=== PATIENT | female | born 1985 | race Hispanic/Latino ===

== ENCOUNTER 2017-07-03 11:01 | Emergency (ER) | payer MEDICAID, OTHER ==
[2017-07-03 11:25] VITALS: RESP 18; TEMP 98; BMI 17.8
[2017-07-03] MEDS ORDERED: Sodium Chloride 0.9% 1,000 ML IV STA (11:29)
[2017-07-03] MEDS ORDERED: Morphine 4 mg/ml ISec IVP STA ×2 (11:31→12:51)
[2017-07-03] MEDS ORDERED: Iohexol 240 (50 ml) ONE (11:47)
[2017-07-03] MEDS ORDERED: Iohexol 350 MG/100 ML VIAL ONE (11:57)
[2017-07-03 12:03] LABS: BASO # 0.01 K/mm3 (0.0-2.0); BASO % 0.2 % (0.0-3.0); EOS # 0.1 (0.0-0.7); EOS % 1.6 % (1.5-5.0); GRAN # 3.6 (1.4-6.5); GRAN % 71.1 % (50.0-68.0); HEMOGLOBIN 9.4 g/dL (12.0-16.0); LYMPH % 20.6 % (22.0-35.0); MEAN CORPUSCULAR HEMOGLOBIN 23.8 pg (25.0-35.0); MEAN CORPUSCULAR HGB CONC 30.1 g/dl (31.0-37.0); MEAN PLATELET VOLUME 11.8 fl (7.0-11.0); MONO # 0.3 (0.1-0.6); MONO % 6.5 % (1.0-6.0); PH,URINE 6.5 (4.7-8.0); RBC 3.95 10^6/uL (3.5-6.1); RED CELL DISTRIBUTION WIDTH 15.9 % (11.5-14.5); URINE BILIRUBIN NEGATIVE (NEGATIVE); URINE BLOOD NEGATIVE (NEGATIVE); URINE GLUCOSE (UA) NEGATIVE (NEGATIVE); URINE LEUKOCYTE ESTERASE NEGATIVE Leu/uL (NEGATIVE); URINE PROTEIN NEGATIVE mg/dL (<30 mg/dL); URINE UROBILINOGEN 0.2 E.U./dL (<1 E.U./dL); WHITE BLOOD COUNT 5.1 10^3/ul (4.5-11.0)
[2017-07-03 12:06] LABS: URINE APPEARANCE CLEAR (CLEAR); URINE COLOR STRAW (YELLOW)
[2017-07-03 12:09] LABS: ALB/GLOB RATIO 1.9 (1.1-1.8); ALBUMIN 4.6 g/dL (3.0-4.8); ALT/SGPT 23 U/L (7-56); AMYLASE 56 U/L (35-125); AST/SGOT 19 U/L (14-36); BLOOD UREA NITROGEN 4 mg/dL (7-21); CALCIUM 9.8 mg/dL (8.4-10.5); GFR AFRICAN-AMERICAN > 60; GFR NON-AFRICAN AMERICAN > 60; LIPASE 34 U/L (23-300)
[2017-07-03 13:40] VITALS: PULSE 86
--- NOTE | 2017-07-03 14:03 | CT ---
PROCEDURE: CT Abdomen and Pelvis with contrast HISTORY: right-sided pain (RLQ>RUQ)- h/o SBO COMPARISON: None. TECHNIQUE: Contrast dose: 100 cc of Omni 350 Radiation dose: Total exam DLP = 248 mGy-cm. This CT exam was performed using one or more of the following dose reduction techniques: Automated exposure control, adjustment of the mA and/or kV according to patient size, and/or use of iterative reconstruction technique. FINDINGS: LOWER THORAX: Unremarkable. LIVER: Unremarkable. No gross lesion or ductal dilatation. GALLBLADDER AND BILE DUCTS: Unremarkable. PANCREAS: Unremarkable. No gross lesion or ductal dilatation. SPLEEN: Unremarkable. ADRENALS: Unremarkable. No mass. KIDNEYS AND URETERS: Unremarkable. No hydronephrosis. No solid mass. VASCULATURE: Unremarkable. No aortic aneurysm. BOWEL: Unremarkable. No obstruction. No gross mural thickening. APPENDIX: Normal appendix. PERITONEUM: Minimal fluid in the cul-de-sac LYMPH NODES: Unremarkable. No enlarged lymph nodes. BLADDER: Unremarkable. REPRODUCTIVE: Unremarkable. BONES: No acute fracture. OTHER FINDINGS: None. IMPRESSION: No acute intra-abdominal findings
[2017-07-03 14:48] LABS: BARBITURATES, UR NEGATIVE (NEGATIVE); BENZODIAZEPINES, UR NEGATIVE (NEGATIVE); OPIATES, UR NEGATIVE (NEGATIVE); PHENCYCLIDINE, UR NEGATIVE (NEGATIVE)
[2017-07-03 15:24] VITALS: BP 120/74; O2SAT 98
--- NOTE | 2017-07-03 15:33 | ED PDOC ---
Arrival/HPI - General Chief Complaint: Abdominal Pain Time Seen by Provider: 07/03/17 11:03 Historian: Patient - History of Present Illness Narrative History of Present Illness (Text): 07/03/17 15:31 A 31 year old female, whose past medical history includes small bowel obstruction with multiple surgeries, presents to the emergency department complaining of sudden onset RLQ abdominal pain earlier this morning. Patient reports nausea and multiple episodes of vomiting today, now stopped. Patient denies any constipation, diarrhea, blood in urine, blood in stool, dysuria or any other complaints at this time. 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 1 ex lap. h/o GT tube - Anesthesia Hx Anesthesia: Yes Hx Anesthesia Reactions: No Hx Malignant Hyperthermia: No Family/Social History - Physician Review Nursing Documentation Reviewed: Yes Family/Social History: No Known Family HX Smoking Status: Heavy Smoker > 10 Cigarettes Daily Hx Alcohol Use: Yes Frequency of alcohol use: Socially Hx Substance Use: No Allergies/Home Meds Allergies/Adverse Reactions: Allergies amoxicillin Allergy (Verified 07/03/17 11:09) RASH Home Medications: Home Meds Medication Instructions Recorded Confirmed Interferon Beta-1A [Avonex Pen] 1 vial IV Q7D 07/03/17 07/03/17 Review of Systems - Physician Review All systems were reviewed & negative as marked: Yes - Review of Systems Gastrointestinal: Abdominal Pain (RLQ), Nausea, Vomiting. absent: Constipation , Diarrhea, Hematochezia Genitourinary Female: absent: Dysuria, Hematuria Physical Exam Vital Signs Reviewed: Yes Vital Signs Temp Pulse Resp BP Pulse Ox 07/03/17 15:23 18 120/74 98 07/03/17 13:40 86 18 128/86 96 07/03/17 11:12 98.0 F 90 18 130/90 96 Temperature: Afebrile Blood Pressure: Normal Pulse: Regular Respiratory Rate: Normal Appearance: Positive for: Well-Appearing, Non-Toxic, Comfortable Pain Distress: None Mental Status: Positive for: Alert and Oriented X 3 - Systems Exam Head: Present: Atraumatic, Normocephalic Pupils: Present: PERRL Extroacular Muscles: Present: EOMI Conjunctiva: Present: Normal Mouth: Present: Moist Mucous Membranes Neck: Present: Normal Range of Motion Respiratory/Chest: Present: Clear to Auscultation, Good Air Exchange. No: Respiratory Distress, Accessory Muscle Use Cardiovascular: Present: Regular Rate and Rhythm, Normal S1, S2. No: Murmurs Abdomen: Present: Tenderness (right sided pain and tenderness; lower > upper). No: Distention, Peritoneal Signs Back: Present: Normal Inspection Upper Extremity: Present: Normal Inspection. No: Cyanosis, Edema Lower Extremity: Present: Normal Inspection. No: Edema Neurological: Present: GCS=15, CN II-XII Intact, Speech Normal Skin: Present: Warm, Dry, Normal Color. No: Rashes Psychiatric: Present: Alert, Oriented x 3, Normal Insight, Normal Concentration Medical Decision Making ED Course and Treatment: 07/03/17 15:29 Impression: A 31 year old female with RLQ abdominal pain, nausea and vomiting. Plan: -- CT abd/pelvis -- labs -- Urinalysis -- Pepcid, Morphine, Zofran, IV fluids, Reglan -- Reassess and disposition Progress Notes: 07/03/17 14:04 CT Abdomen and Pelvis with contrast Creator : El Maier MD FINDINGS: LOWER THORAX: Unremarkable. LIVER: Unremarkable. No gross lesion or ductal dilatation. GALLBLADDER AND BILE DUCTS: Unremarkable. PANCREAS: Unremarkable. No gross lesion or ductal dilatation. SPLEEN: Unremarkable. ADRENALS: Unremarkable. No mass. KIDNEYS AND URETERS: Unremarkable. No hydronephrosis. No solid mass. VASCULATURE: Unremarkable. No aortic aneurysm. BOWEL: Unremarkable. No obstruction. No gross mural thickening. APPENDIX: Normal appendix. PERITONEUM: Minimal fluid in the cul-de-sac LYMPH NODES: Unremarkable. No enlarged lymph nodes. BLADDER: Unremarkable. REPRODUCTIVE: Unremarkable. BONES: No acute fracture. IMPRESSION: No acute intra-abdominal findings Urine, blood and CT scan are negative. US ordered but patient refused. IV taken out by nurse, patient walked out prior to signing against medical advice form when getting discharge paperwork. Patient understood reason for US transvaginal , TOA vs. torsion. - Lab Interpretations Lab Results: 07/03/17 11:45 07/03/17 11:45 Lab Results 07/03/17 14:14: Urine Opiates Screen Negative, Urine Methadone Screen Negative, Ur Barbiturates Screen Negative, Ur Phencyclidine Scrn Negative, Ur Amphetamines Screen Negative, U Benzodiazepines Scrn Negative, U Oth Cocaine Metabols Negative, U Cannabinoids Screen Negative 07/03/17 12:30: Urine HCG, Qual Negative 07/03/17 11:45: Sodium 143, Potassium 4.1, Chloride 106, Carbon Dioxide 23, Anion Gap 19, BUN 4 L, Creatinine 0.5 L, Est GFR ( Amer) > 60, Est GFR ( Non-Af Amer) > 60, Random Glucose 88, Calcium 9.8, Magnesium 1.8, Total Bilirubin 0.3, AST 19, ALT 23, Alkaline Phosphatase 77, Total Protein 7.0, Albumin 4.6, Globulin 2.4, Albumin/Globulin Ratio 1.9 H, Amylase 56, Lipase 34 07/03/17 11:45: Urine Color Straw, Urine Appearance Clear, Urine pH 6.5, Ur Specific [place] <= 1.005, Urine Protein Negative, Urine Glucose (UA) Negative, Urine Ketones Negative, Urine Blood Negative, Urine Nitrate Negative, Urine Bilirubin Negative, Urine Urobilinogen 0.2, Ur Leukocyte Esterase Negative 07/03/17 11:45: WBC 5.1, RBC 3.95, Hgb 9.4 L, Hct 31.2 L, MCV 79.0 L, MCH 23.8 L , MCHC 30.1 L, RDW 15.9 H, Plt Count 216, MPV 11.8 H, Gran % 71.1 H, Lymph % ( Auto) 20.6 L, [place] % (Auto) 6.5 H, Eos % (Auto) 1.6, Baso % (Auto) 0.2, Gran # 3.60, Lymph # (Auto) 1.0 L, [place] # (Auto) 0.3, Eos # (Auto) 0.1, Baso # (Auto) 0.01 I have reviewed the lab results: Yes - RAD Interpretation Radiology Orders: 07/03/17 11:29 ABD PELVIS PO & IV CONTRAST [CT] Stat - Medication Orders Current Medication Orders: Discontinued Medications Famotidine (Pepcid) 20 mg IVP STAT STA Stop: 07/03/17 11:30 Last Admin: 07/03/17 11:59 Dose: 20 mg IVP Administration Document 07/03/17 11:59 SS (Rec: 07/03/17 11:[id number]) Charges for Administration # of IVP Administrations 1 Sodium Chloride (Sodium Chloride 0.9%) 1,000 mls @ 1,000 mls/hr IV .Q1H STA Stop: 07/03/17 12:28 Last Admin: 07/03/17 12:00 Dose: 1,000 mls/hr eMAR Start Stop Document 07/03/17 12:00 SS (Rec: 07/03/17 12:00 [place] [id number]) Intravenous Solution Start Date 07/03/17 Start Time 12:00 Metoclopramide HCl (Reglan) 10 mg IVP STAT STA Stop: 07/03/17 14:30 Last Admin: 07/03/17 15:02 Dose: Not Given Non-Admin Reason: Patient Refused IVP Administration Document 07/03/17 15:02 SS (Rec: 07/03/17 15:[id number]) Charges for Administration # of IVP Administrations 1 Morphine Sulfate (Morphine) 4 mg IVP STAT STA Stop: 07/03/17 11:32 Last Admin: 07/03/17 11:59 Dose: 4 mg MAR Pain Assessment Document 07/03/17 11:59 SS (Rec: 07/03/17 12:[id number]) Pain Reassessment Is this a pain reassessment? No Sleep Is patient sleeping during reassessment? No Presence of Pain Presence of Pain Yes Pain Scale Used Pain Scale Used Numeric Location Left, Right or Bilateral Right Upper or Lower Lower Pain Location Body Site Abdomen IVP Administration Document 07/03/17 11:59 SS (Rec: 07/03/17 12:00 SS [id number]) Charges for Administration # of IVP Administrations 1 Morphine Sulfate (Morphine) 4 mg IVP STAT STA Stop: 07/03/17 12:52 Last Admin: 07/03/17 13:02 Dose: 4 mg MAR Pain Assessment Document 07/03/17 13:02 SS (Rec: 07/03/17 13:03 [place] [id number]) Pain Reassessment Is this a pain reassessment? Yes Sleep Is patient sleeping during reassessment? No Presence of Pain Presence of Pain Yes Pain Scale Used Pain Scale Used Numeric Location Left, Right or Bilateral Right Upper or Lower Lower Pain Location Body Site Abdomen Description Description Constant Intensity of Pain at present 10 IVP Administration Document 07/03/17 13:02 SS (Rec: 07/03/17 13:03 SS [id number]) Charges for Administration # of IVP Administrations 1 Ondansetron HCl (Zofran Inj) 8 mg IVP STAT STA Stop: 07/03/17 11:30 Last Admin: 07/03/17 11:59 Dose: 8 mg IVP Administration Document 07/03/17 11:59 SS (Rec: 07/03/17 11:59 SS [id number]) Charges for Administration # of IVP Administrations 1 - Scribe Statement The provider has reviewed the documentation as recorded by the Urbano Mendoza Provider Scribe Attestation: All medical record entries made by the Scribe were at my direction and personally dictated by me. I have reviewed the chart and agree that the record accurately reflects my personal performance of the history, physical exam, medical decision making, and the department course for this patient. I have also personally directed, reviewed, and agree with the discharge instructions and disposition. Disposition/Present on Arrival - Present on Arrival Any Indicators Present on Arrival: No History of DVT/PE: No History of Uncontrolled Diabetes: No Urinary Catheter: No History of Decub. Ulcer: No History Surgical Site Infection Following: None - Disposition Have Diagnosis and Disposition been Completed?: Yes Diagnosis: Abdominal pain Disposition: AGAINST MEDICAL ADVICE Disposition Time: 14:45 Condition: UNKNOWN Discharge Instructions (ExitCare): Acute Abdomen (Belly Pain), Adult (DC) Additional Instructions: Thank you for letting us take care of you today. The emergency medical care you received today was directed at your acute symptoms. If you were prescribed any medication, please fill it and take as directed. It may take several days for your symptoms to resolve. Return to the Emergency Department if your symptoms worsen, do not improve, or if you have any other problems. Please contact your doctor or call one of the physicians/clinics you have been referred to that are listed on the Patient Visit Information form that is included in your discharge packet. Bring any paperwork you were given at discharge with you along with any medications you are taking to your follow up visit. Our treatment cannot replace ongoing medical care by a primary care provider (PCP) outside of the emergency department. Thank you for allowing the [facility] team to be part of your care today. YOU SIGNED OUT AGAINST MEDICAL ADVICE. Please follow up with your doctor as soon as possible. Referrals: [facility], [Non-Staff] - Follow up with primary Forms: [facility] ([place])
== END 2017-07-03 15:22 | disposition left against medical advice (07) ==
LOC: ED 11:01
DX: R10.9 Unspecified abdominal pain (principal)
CPT/HCPCS: 74177; 80053; 81003; 82150; 83690; 83735; 84703; 85025; 87086; 96374; 96375; 96376; 99284; G0480; J2270; J2405; J7040; Q9966; Q9967